=== PATIENT | male | born 1965 | race Caucasian/White ===

== ENCOUNTER 2018-09-18 10:47 | Emergency (ER) | payer OTHER ==
[~2018-09-18] VITALS: Ht 180.3 cm; Wt 81.6 kg
[~2018-09-18 10:47] MED LIST: ANTIVERT25 M1 PO; TRAMADOL HCL50 MG PO
== END 2018-09-18 17:07 | disposition home or self-care (01) ==
LOC: ER 10:47
DX: I49.3 Ventricular premature depolarization (principal); R00.2 Palpitations; F06.4 Anxiety disorder due to known physiological condition

== ENCOUNTER → 2019-03-09 | Emergency (ER) | payer OTHER ==
[~2019-03-09] VITALS: Ht 180.3 cm; Wt 81.6 kg
== END | disposition home or self-care (01) ==
LOC: ER 22:27
DX: R00.2 Palpitations (principal)

== ENCOUNTER 2021-02-13 09:05 | Emergency (ER) | payer OTHER ==
[~2021-02-13] VITALS: Ht 167.6 cm; Wt 69.4 kg
[2021-02-13] MEDS ORDERED: BUTALBIT-ACETA1 EACH PO (13:46)
[2021-02-13] MEDS ORDERED: MEDI-MECLIZINE25 MG PO (13:46)
== END 2021-02-13 14:07 ==
LOC: ER 09:05
DX: H81.4 Vertigo of central origin (principal); Z03.818 Encounter for observation for suspected exposure to other biological agents ruled out

== ENCOUNTER 2024-12-14 10:59 | Emergency (ER) | payer OTHER ==
[~2024-12-14] VITALS: Ht 180.3 cm; Wt 83.9 kg
[~2024-12-14 10:59] MED LIST changes: +BUTALBIT-ACETA1 EACH PO; +MEDI-MECLIZINE25 MG PO
[2024-12-14 15:38] LABS: BASO % 0.7 % (0.1-1.2); EOS # 0.07 (0.04-0.54); EOS % 0.9 % (0.7-7.0); LYMPH # 1.22 (1.18-3.74); LYMPH % 16.2 % (19.3-53.1); MEAN PLATELET VOLUME 10.60 fl (9.4-12.4); MONO # 0.61 (0.24-0.82); MONO % 8.1 % (4.7-12.5); NEUT # 5.55 (1.56-6.13); NEUT % 73.8 % (34.0-71.1); RED CELL DISTRIBUTION WIDTH 12.3 % (11.6-14.4)
[2024-12-14 16:07] LABS: ALT/SGPT 29.0 U/L (12-78); AST/SGOT 15.0 U/L (15-37); BILIRUBIN TOTAL 0.76 mg/dL (0.3-1.2); BUN CREA RATIO 11.0 (7.0-25.0); CREATININE SERUM 0.82 mg/dL (0.70-1.30); GFR 95.51; GLOBULINA 3.3 G/DL (2.4-3.5); GLUCOSE FASTING 113.0 mg/dL (65-100); OSMOLALITY SERUM 284.0 MOSM/KG (275-295)
[2024-12-14] MEDS ORDERED: ENALAPRIL MALEATE 10 MG TABLET PO ONE (18:30)
== END 2024-12-14 19:31 | disposition home or self-care (01) ==
LOC: ER 10:59
PROVIDERS: Preventive Medicine Public Health & General Preventive Medicine
DX: I10 Essential (primary) hypertension (principal); G44.209 Tension-type headache, unspecified, not intractable